=== PATIENT | male | born 1970 | race Caucasian/White ===

== ENCOUNTER 2017-05-19 06:47 | Emergency (ER) | payer OTHER ==
[2017-05-19] MEDS ORDERED: HYDROmorphONE/DILAUDID 1 MG/ML INJ IVP ONE ×2 (07:03→07:25)
[2017-05-19] MEDS ORDERED: NS 1,000 ML IV ONE ×2 (07:03→09:28)
[2017-05-19] MEDS ORDERED: ONDANSETRON 4 MG/2 ML VIAL IVP ONE (07:03)
--- NOTE | 2017-05-19 07:16 | EDPHY ---
H & P Time Seen by Provider: 05/19/17 07:09 HPI/ROS: Chief complaint. Abdominal pain HPI. 39-year-old male visiting from [place] presents with mid abdominal pain that began yesterday. He has a history of pancreatitis and pancreatic pseudocyst with surgery about 10 years ago. The patient notes his symptoms began moderately yesterday and then have gradually gotten more severe. Decreased appetite. Slight nausea but no vomiting or diarrhea. Pain is described as achy mid abdomen radiating through to his back. Possibly worse with eating. Similar symptoms to his pancreatitis previously. No chest discomfort or trouble breathing. No fever. No urinary symptoms ROS Constitutional. no fever/chills, no weakness Eyes. no problems with vision ENT. no sore throat, no nasal drainage Cardiovascular. no chest pain Respiratory. no shortness of breath, no cough Abdominal. Abdominal pain with nausea . no problems urinating MS. no calf pain/swelling, no neck/back pain, no joint pain Skin. no rash Lymph. no swollen glands Neuro. no headache, no dizziness, no difficulty walking or with speech Past Medical/Surgical History: Pancreatitis with pancreatic pseudocyst and surgery Social History: , nonsmoker, no alcohol Smoking Status: Never smoked Physical Exam: General Appearance: Alert well-developed male moderate distress vital signs are stable with initial heart rate 107 and blood pressure 153/101 Eyes: Pupils equal and round no pallor or injection. ENT, Mouth: Mucous membranes are moist. Respiratory: There are no retractions, lungs are clear to auscultation. Cardiovascular: Regular rate and rhythm. Gastrointestinal: Abdomen is soft with tender in the epigastrium. No masses. Normal bowel sounds Neurological: Awake and alert, sensory and motor exams grossly normal. Skin: Warm and dry, no rashes. Musculoskeletal: Neck is supple nontender. Extremities symmetrical, full range of motion. Psychiatric: Patient is oriented X 3, there is no agitation. Constitutional: Initial Vital Signs Temperature (C) 37.0 C 05/19/17 06:51 Heart Rate 107 H 05/19/17 06:51 Respiratory Rate 19 05/19/17 06:51 Blood Pressure 153/101 H 05/19/17 06:51 O2 Sat (%) 98 05/19/17 06:51 O2 Delivery Mode Room Air Allergies/Adverse Reactions: No Known Allergies Allergy (Unverified 05/19/17 06:55) Home Medications: Medication Instructions Recorded oxyCODONE/APAP 5/325 [Percocet 1 tab PO Q4-6PRN PRN #7 tab 05/19/17 5/325] Medical Decision Making - Diagnostics Imaging Results: Imaging Impressions Abdomen CT 05/19/17 07:25 Impression: 1. No CT findings to account for acute abdominal pain. Mild diverticulosis in the sigmoid colon without evidence for diverticulitis. 2. Status post cholecystectomy. 3. Evidence of prior abdominal surgery without evidence for small bowel obstruction. 4. Other chronic findings as above. Results called and discussed with Hiro Smith at 05/19/2017 at 9:[address] abdomen and pelvis with IV contrast discussed with Dr. Nava and reviewed by me shows mild diverticulosis. No evidence for pancreatitis or pseudocyst. No evidence for small bowel obstruction. Procedures: IV normal saline. Dilaudid for pain. Zofran for nausea. ED Course/Re-evaluation: Re-evaluation 9:20 a.m.--patient is stable. He continues to have pain. He is offered admission. The patient and his and I discussed labs and imaging study results. We discussed treatment plan including potential admission. We discussed risks and benefits of this. They have a flight tomorrow back to [place] an arc trying to change it for today. Re-evaluation 10:10 a.m.. Patient wants to leave. They have arranged for the flight this afternoon and will follow up at with the hospitalist and is a return to [place]. They are encouraged to return to our emergency department for worsening symptoms prior to their departure Differential Diagnosis: I considered pancreatitis, peptic ulcer disease, bowel obstruction, diverticulitis - Data Points Laboratory Results: Laboratory Results 05/19/17 07:05 05/19/17 07:05 05/19/17 05/19/17 05/19/17 07:05 07:05 07:05 WBC 7.81 10^3/uL 10^3/uL (3.80-9.50) RBC 4.99 10^6/uL 10^6/uL (4.40-6.38) Hgb 15.2 g/dL g/dL (13.7-17.5) Hct 43.1 % % (40.0-51.0) MCV 86.4 fL fL (81.5-99.8) MCH 30.5 pg pg (27.9-34.1) MCHC 35.3 g/dL g/dL (32.4-36.7) RDW 12.8 % % (11.5-15.2) Plt Count 312 10^3/uL 10^3/uL (150-400) MPV 9.8 fL fL (8.7-11.7) Neut % (Auto) 57.8 % % (39.3-74.2) Lymph % (Auto) 32.3 % % (15.0-45.0) Beckham % (Auto) 8.2 % % (4.5-13.0) Eos % (Auto) 1.0 % % (0.6-7.6) Baso % (Auto) 0.3 % % (0.3-1.7) Nucleat RBC Rel Count 0.0 % % (0.0-0.2) Absolute Neuts (auto) 4.52 10^3/uL 10^3/uL (1.70-6.50) Absolute Lymphs (auto) 2.52 10^3/uL 10^3/uL (1.00-3.00) Absolute Monos (auto) 0.64 10^3/uL 10^3/uL (0.30-0.80) Absolute Eos (auto) 0.08 10^3/uL 10^3/uL (0.03-0.40) Absolute Basos (auto) 0.02 10^3/uL 10^3/uL (0.02-0.10) Absolute Nucleated RBC 0.00 10^3/uL 10^3/uL (0-0.01) Immature Gran % 0.4 % % (0.0-1.1) Immature Gran # 0.03 10^3/uL 10^3/uL (0.00-0.10) Sodium Potassium Chloride Carbon Dioxide Anion Gap BUN Creatinine Estimated GFR Glucose Calcium Total Bilirubin 0.9 mg/dL mg/dL (0.1-1.4) Conjugated Bilirubin 0.3 mg/dL mg/dL (0.0-0.5) Unconjugated Bilirubin 0.6 mg/dL mg/dL (0.0-1.1) AST 19 IU/L IU/L (17-59) ALT 31 IU/L IU/L (21-72) Alkaline Phosphatase 66 IU/L IU/L (38-126) Troponin I < 0.012 ng/mL ng/mL (0.000-0.034) Total Protein 7.4 g/dL g/dL (6.3-8.2) Albumin 4.5 g/dL g/dL (3.5-5.0) Lipase 69 IU/L IU/L (23-300) 05/19/17 07:05 WBC RBC Hgb Hct MCV MCH MCHC RDW Plt Count MPV Neut % (Auto) Lymph % (Auto) Beckham % (Auto) Eos % (Auto) Baso % (Auto) Nucleat RBC Rel Count Absolute Neuts (auto) Absolute Lymphs (auto) Absolute Monos (auto) Absolute Eos (auto) Absolute Basos (auto) Absolute Nucleated RBC Immature Gran % Immature Gran # Sodium 145 mEq/L H mEq/L (134-144) Potassium 3.7 mEq/L mEq/L (3.5-5.2) Chloride 107 mEq/L mEq/L (97-110) Carbon Dioxide 23 mEq/l mEq/l (22-31) Anion Gap 15 mEq/L mEq/L (8-16) BUN 14 mg/dL mg/dL (7-23) Creatinine 0.8 mg/dL mg/dL (0.7-1.3) Estimated GFR > 60 Glucose 114 mg/dL H mg/dL (70-100) Calcium 10.2 mg/dL mg/dL (8.5-10.4) Total Bilirubin Conjugated Bilirubin Unconjugated Bilirubin AST ALT Alkaline Phosphatase Troponin I Total Protein Albumin Lipase Medications Given: Discontinued Medications Hydromorphone HCl (Dilaudid) 1 mg IVP EDNOW ONE Stop: 05/19/17 07:04 Last Admin: 05/19/17 07:10 Dose: 1 mg Hydromorphone HCl (Dilaudid) 0.5 mg IVP EDNOW ONE Stop: 05/19/17 07:26 Last Admin: 05/19/17 07:42 Dose: 0.5 mg Sodium Chloride (Ns) 1,000 mls @ 0 mls/hr IV ONCE ONE PRN Reason: Wide Open Stop: 05/19/17 07:04 Last Admin: 05/19/17 07:09 Dose: 1,000 mls Sodium Chloride (Ns) 1,000 mls @ 0 mls/hr IV EDNOW ONE; Wide Open PRN Reason: Protocol Stop: 05/19/17 09:29 Last Admin: 05/19/17 09:40 Dose: 1,000 mls Famotidine/Sodium Chloride (Pepcid 20 Mg (Premix)) 50 mls @ 200 mls/hr IV EDNOW ONE Stop: 05/19/17 09:44 Last Admin: 05/19/17 09:39 Dose: 50 mls Ketorolac Tromethamine (Toradol) 30 mg IVP EDNOW ONE Stop: 05/19/17 09:29 Last Admin: 05/19/17 09:40 Dose: 30 mg Ondansetron HCl (Zofran) 4 mg IVP EDNOW ONE Stop: 05/19/17 07:04 Last Admin: 05/19/17 07:10 Dose: 4 mg Departure - Departure Disposition: Home, Routine, Self-Care Clinical Impression: Abdominal pain Qualifiers: Abdominal location: epigastric Qualified Code(s): R10.13 - Epigastric pain Condition: Good Instructions: Acute Abdominal Pain (ED) Additional Instructions: Percocet as needed for pain. Return prior to flight for worsening symptoms. Follow up today on return to [place] for abdominal pain. Referrals: NOT,SURE [Other] - As per Instructions Prescriptions: oxyCODONE/APAP 5/325 [Percocet 5/325] 1 tab PO Q4-6PRN PRN #7 tab PRN Reason: Pain, Moderate
[2017-05-19 07:30] LABS: ANION GAP 15 mEq/L (8-16); CALCIUM 10.2 mg/dL (8.5-10.4); CARBON DIOXIDE 23 mEq/l (22-31); CHLORIDE 107 mEq/L (97-110); CREATININE 0.8 mg/dL (0.7-1.3); GLOMERULAR FILTRATION RATE > 60; GLUCOSE 114 mg/dL (70-100); POTASSIUM 3.7 mEq/L (3.5-5.2); SODIUM 145 mEq/L (134-144)
[2017-05-19 07:33] LABS: % IMMATURE GRANULYOCYTES 0.4 % (0.0-1.1); ABSOLUTE IMMATURE GRANULOCYTES 0.03 10^3/uL (0.00-0.10); ADD DIFF? NO; ADD MORPH? NO; ADD SCAN? NO; ATYPICAL LYMPHOCYTE FLAG 10 (0-99); FRAGMENT RBC FLAG 0 (0-99); HEMATOCRIT 43.1 % (40.0-51.0); HEMOGLOBIN 15.2 g/dL (13.7-17.5); LEFT SHIFT FLG 0 (0-99); LIPEMIA HEMOLYSIS FLAG 90 (0-99); MEAN CELL HEMOGLOBIN 30.5 pg (27.9-34.1); MEAN CELL HEMOGLOBIN CONCENTR. 35.3 g/dL (32.4-36.7); MEAN CELL VOLUME 86.4 fL (81.5-99.8); MEAN PLATELET VOLUME 9.8 fL (8.7-11.7); PLATELET CLUMPS FLAG 0 (0-99); PLATELET COUNT 312 10^3/uL (150-400); RED BLOOD CELL COUNT 4.99 10^6/uL (4.40-6.38); RED CELL DISTRIBUTION WIDTH 12.8 % (11.5-15.2)
[2017-05-19] MEDS ORDERED: IOPAMIDOL (ISOVUE-300) 100 ML BTL ONE (07:36)
[2017-05-19 07:48] LABS: ALBUMIN 4.5 g/dL (3.5-5.0); BILIRUBIN,TOTAL 0.9 mg/dL (0.1-1.4); BILIRUBIN-CONJUGATED 0.3 mg/dL (0.0-0.5); BILIRUBIN-UNCONJUGATED 0.6 mg/dL (0.0-1.1); TOTAL PROTEIN 7.4 g/dL (6.3-8.2)
[2017-05-19] MEDS ORDERED: KETOROLAC 30 MG/1 ML SDV IVP ONE (09:28)
[2017-05-19] MEDS ORDERED: FAMOTIDINE 20 MG/NACL 50 ML IV ONE (09:30)
[2017-05-19 09:46] VITALS: RESP 18; O2SAT 96
[2017-05-19] MEDS ORDERED: OXYCODONE/APAP 5/325MG PREPACK#4 BTL TAKEHOME ONE (10:23)
--- NOTE | 2017-05-19 10:34 | CPEKG ---
Heart Rate: 75 RR Interval: 800 P-R Interval: 176 QRSD Interval: 88 QT Interval: 376 QTC Interval: 420 P [place]: 39 QRS [place]: 6 T Wave [place]: 7 EKG Severity - NORMAL ECG - EKG Impression: SINUS RHYTHM Electronically Signed By: Hiro Smith 19-May-2017 11:27:20
[2017-05-19 10:36] VITALS: BP 152/97; PULSE 85; TEMP 97.9
== END 2017-05-19 10:34 | disposition home or self-care (01) ==
DX: R10.13 Epigastric pain (principal); E86.9 Volume depletion, unspecified
CPT/HCPCS: 96365; J1170; J1885; J2405; Q9967